=== PATIENT | female | born 1975 | race Caucasian/White ===

== ENCOUNTER 2017-05-06 17:24 | Inpatient (IN) | payer BC, MEDICAID, OTHER ==
[~2017-05-06] VITALS: Ht 160 cm; Wt 64.5 kg
[2017-05-06] MEDS ORDERED: SERT50TA12 PO (18:04)
[2017-05-06 18:19] LABS: BASOPHILS % (AUTO) 0.8 % (0.0-2.0); EOSINOPHILS % (AUTO) 2.2 % (1.0-6.0); LYMPHOCYTES # (AUTO) 1.8 K/uL (1.0-4.8); LYMPHOCYTES % (AUTO) 23.8 % (22.0-44.0); MEAN CORPUSCULAR HEMOGLOBIN 31.6 pg (26.0-34.0); MEAN CORPUSCULAR HGB CONC 34.1 G/dL (31.0-37.0); MEAN CORPUSCULAR VOLUME 93 fL (80-100); MONOCYTES # (AUTO) 0.7 K/uL (0.1-1.0); MONOCYTES % (AUTO) 9.7 % (2.0-9.0); NEUTROPHILS # (AUTO) 4.7 K/uL (1.8-7.7); NEUTROPHILS % (AUTO) 63.5 % (40.0-70.0); PLATELET COUNT (AUTO) 239 K/uL (150-450); RED BLOOD CELL COUNT(AUTO) 3.79 MIL/uL (4.00-5.20); RED CELL DISTRIBUTION WIDTH 13.7 % (11.5-14.5); WHITE BLOOD COUNT (AUTO) 7.5 K/uL (4.5-11.0)
[2017-05-06 18:28] LABS: ANION GAP 7 mmol/L (8-16); CALCIUM, TOTAL 8.6 mg/dL (8.8-10.5); CARBON DIOXIDE 28 mmol/L (22-29); CHLORIDE 105 mmol/L (98-107); CREATININE 0.71 mg/dL (0.60-1.30); GLOMERULAR FILTR. RATE CALC > 60 mL/min (>60); POTASSIUM 3.3 mmol/L (3.5-5.1); SODIUM SERUM 140 mmol/L (136-145); UREA NITROGEN, BLOOD 5 mg/dL (7-18)
[2017-05-06 18:36] LABS: ALANINE AMINOTRANSFERASE 34 U/L (12-78); ALBUMIN 3.2 g/dL (3.4-5.0); ASPARTATE AMINOTRANSFERASE 16 U/L (15-37); BILIRUBIN,TOTAL 0.4 mg/dL (0.1-1.0); TOTAL PROTEIN, SERUM 6.2 g/dL (6.4-8.2)
[2017-05-06] MEDS ORDERED: HALOPERIDOL 5 MG TABLET PO PRN (18:45)
[2017-05-06] MEDS ORDERED: LORazepam 2 MG TABLET PO PRN (18:45)
[2017-05-06] MEDS ORDERED: ZOLPIDEM TARTRATE 10 MG TABLET PO PRN (18:45)
[2017-05-06 21:15] LABS: ADD UA MICROSCOPIC NO; APPEARANCE,URINE CLOUDY (CLEAR); GLUCOSE, URINE (UA) NEGATIVE (NEGATIVE); KETONES,URINE NEGATIVE (NEGATIVE); LEUKOCYTE ESTERASE ,URINE NEGATIVE (NEGATIVE); OCCULT BLOOD,URINE NEGATIVE (NEGATIVE); PROTEIN,URINE NEGATIVE (NEGATIVE)
[2017-05-06 21:16] VITALS: BP 96/53
[2017-05-06] MEDS ORDERED: INFLUENZA VIRUS VACCINE QVS 2017-18 (3YR+)/PF 60 MCG/0.5 ML SYRINGE IM ONE (21:45)
[2017-05-07 01:09] VITALS: BP 115/61
[2017-05-07] MEDS ORDERED: PNEUMOCOCCAL VACCINE POLYVALENT 0.5 ML VIAL [PPSV23] IM ONE (01:30)
[2017-05-07] MEDS ORDERED: IBUPROFEN 600 MG TABLET PO PRN (07:15)
[2017-05-07] MEDS ORDERED: LOPERAMIDE HCL 2 MG CAPSULE PO PRN (07:15)
[2017-05-07] MEDS ORDERED: CloNIDine HCL 0.1 MG TABLET PO PRN (07:15)
[2017-05-07] MEDS ORDERED: POTASSIUM CHLORIDE 20 MEQ ER TABLET PO ONE (07:15)
[2017-05-07] MEDS ORDERED: MAGNESIUM HYDROXIDE SUSPENSION 30 ML UDCUP PO PRN (07:15)
[2017-05-07] MEDS ORDERED: BACITRACIN 28.4 GM OINTMENT TP PRN (07:15)
[2017-05-07] MEDS ORDERED: ACETAMINOPHEN 325 MG TABLET PO PRN (07:15)
[2017-05-07] MEDS ORDERED: ONDANSETRON HCL 4 MG TABLET PO PRN (07:15)
[2017-05-07] MEDS ORDERED: PETROLATUM,WHITE 71 GM JELLY TP PRN (07:15)
[2017-05-07] MEDS ORDERED: BENZOCAINE/MENTHOL LOZENGE MM PRN (07:15)
[2017-05-07] MEDS ORDERED: MAG HYDROX/AL HYDROX/SIMETH ES 30 ML SUSPENSION UDCUP PO PRN (07:15)
[2017-05-07] MEDS ORDERED: ALBUTEROL SULFATE HFA 90 MCG/PUFF 8 GM INHALER IH PRN (07:15)
[2017-05-07 08:41] LABS: BASOPHILS % (AUTO) 0.5 % (0.0-2.0); EOSINOPHILS % (AUTO) 2.9 % (1.0-6.0); HEMATOCRIT 37.8 % (36-46); HEMOGLOBIN 12.8 g/dL (12.0-16.0); LYMPHOCYTES # (AUTO) 1.8 K/uL (1.0-4.8); LYMPHOCYTES % (AUTO) 26.9 % (22.0-44.0); MEAN CORPUSCULAR HEMOGLOBIN 31.7 pg (26.0-34.0); MEAN CORPUSCULAR HGB CONC 33.8 G/dL (31.0-37.0); MEAN CORPUSCULAR VOLUME 94 fL (80-100); MONOCYTES # (AUTO) 0.6 K/uL (0.1-1.0); MONOCYTES % (AUTO) 9.7 % (2.0-9.0); PLATELET COUNT (AUTO) 246 K/uL (150-450); RED BLOOD CELL COUNT(AUTO) 4.03 MIL/uL (4.00-5.20); RED CELL DISTRIBUTION WIDTH 13.7 % (11.5-14.5); WHITE BLOOD COUNT (AUTO) 6.6 K/uL (4.5-11.0)
[2017-05-07 09:10] LABS: ALANINE AMINOTRANSFERASE 31 U/L (12-78); ALBUMIN 2.8 g/dL (3.4-5.0); ANION GAP 7 mmol/L (8-16); ASPARTATE AMINOTRANSFERASE 17 U/L (15-37); BILIRUBIN,TOTAL 0.2 mg/dL (0.1-1.0); CALCIUM, TOTAL 8.2 mg/dL (8.8-10.5); CARBON DIOXIDE 30 mmol/L (22-29); CHLORIDE 108 mmol/L (98-107); CREATININE 0.71 mg/dL (0.60-1.30); GLOMERULAR FILTR. RATE CALC > 60 mL/min (>60); POTASSIUM 4.1 mmol/L (3.5-5.1); SODIUM SERUM 145 mmol/L (136-145); THYROID STIMULATING HORMONE 0.38 uIU/mL (0.36-3.74); TOTAL PROTEIN, SERUM 5.9 g/dL (6.4-8.2); UREA NITROGEN, BLOOD 8 mg/dL (7-18)
[2017-05-07] MEDS: NICOTINE 21 MG/24 HOUR PATCH TD SCH (09:35)
[2017-05-07 16:26] VITALS: BP 92/63
[2017-05-07] MEDS: FLUoxetine HCL 20 MG CAPSULE PO SCH (16:49)
[2017-05-08 06:35] VITALS: BP 110/68
[2017-05-08 08:33] VITALS: BP 96/66
[2017-05-08] MEDS: CLOTRIMAZOLE 1% 15 GM CREAM TP SCH ×2 (09:17→17:08)
[2017-05-08] MEDS: NICOTINE 21 MG/24 HOUR PATCH TD SCH (09:19)
[2017-05-08] MEDS: FLUoxetine HCL 20 MG CAPSULE PO SCH (09:19)
[2017-05-08] MEDS: OLANZapine 5 MG TABLET PO SCH (09:24)
[2017-05-09 00:53] VITALS: BP 105/72
[2017-05-09 08:16] VITALS: BP 110/60
[2017-05-09] MEDS: FLUoxetine HCL 20 MG CAPSULE PO SCH (08:35)
[2017-05-09] MEDS: NICOTINE 21 MG/24 HOUR PATCH TD SCH (08:35)
[2017-05-09] MEDS: CLOTRIMAZOLE 1% 15 GM CREAM TP SCH ×2 (08:35→16:45)
[2017-05-09] MEDS: OLANZapine 5 MG TABLET PO SCH (08:35)
[2017-05-09 16:00] VITALS: BP 106/69
[2017-05-10 05:44] VITALS: BP 100/58
[2017-05-10] MEDS: OLANZapine 5 MG TABLET PO SCH (08:38)
[2017-05-10] MEDS: FLUoxetine HCL 20 MG CAPSULE PO SCH (08:38)
[2017-05-10] MEDS: NICOTINE 21 MG/24 HOUR PATCH TD SCH (08:39)
[2017-05-10] MEDS: CLOTRIMAZOLE 1% 15 GM CREAM TP SCH ×2 (08:39→16:45)
[2017-05-10 09:16] VITALS: BP 107/60
[2017-05-10 16:15] VITALS: BP 105/69
[2017-05-10] MEDS ORDERED: ROPINIRole HCL 0.25 MG TABLET PO SCH (21:00)
[2017-05-11] VITALS: BP 113/67
[2017-05-11 08:00] VITALS: BP 103/65
[2017-05-11] MEDS: FLUoxetine HCL 20 MG CAPSULE PO SCH (08:14)
[2017-05-11] MEDS: OLANZapine 5 MG TABLET PO SCH (08:14)
[2017-05-11] MEDS: NICOTINE 21 MG/24 HOUR PATCH TD SCH (08:14)
[2017-05-11] MEDS ORDERED: FLUO-191 PO (08:26)
[2017-05-11] MEDS ORDERED: OLAN5TAB2 PO (08:26)
[2017-05-11] MEDS ORDERED: NICO-704 TD (08:26)
[2017-05-11] MEDS: CLOTRIMAZOLE 1% 15 GM CREAM TP SCH (08:27)
== END 2017-05-11 10:05 | disposition home or self-care (01) | DRG 754 ==
LOC: EMS 17:27 → AHU 21:03 → B2S 23:59
PROVIDERS: ADMIT Psychiatry & Neurology Child & Adolescent Psychiatry; ATTEND Psychiatry & Neurology Child & Adolescent Psychiatry
DX: F32.9 Major depressive disorder, single episode, unspecified (principal); E46 Unspecified protein-calorie malnutrition; R45.851 Suicidal ideations; E83.51 Hypocalcemia; F15.10 Other stimulant abuse, uncomplicated; F17.200 Nicotine dependence, unspecified, uncomplicated; E87.6 Hypokalemia; F41.9 Anxiety disorder, unspecified; F53 Mental and behavioral disorders associated with the puerperium, not elsewhere classified; G47.00 Insomnia, unspecified; J45.909 Unspecified asthma, uncomplicated; L30.9 Dermatitis, unspecified; Z59.0 Homelessness; Z63.8 Other specified problems related to primary support group; Z71.51 Drug abuse counseling and surveillance of drug abuser; Z91.83 Wandering in diseases classified elsewhere; Z28.21 Immunization not carried out because of patient refusal
CPT/HCPCS: 82306; 84132; 84439; 84443; 87081; 99285; G0480